=== PATIENT | female | born 1945 | race Caucasian/White ===

== ENCOUNTER → 2017-06-25 | Outpatient (CLI) | payer MEDICARE, OTHER | END | disposition home or self-care (01) | LOC: CFH 12:28 | PROVIDERS: ATTEND Family Medicine | DX: Z12.31 Encounter for screening mammogram for malignant neoplasm of breast (principal); Z80.3 Family history of malignant neoplasm of breast | CPT/HCPCS: 77067 ==

== ENCOUNTER → 2017-10-03 | Outpatient (CLI) | payer MEDICARE, OTHER | END | disposition home or self-care (01) | LOC: CFH 10:01 | PROVIDERS: ATTEND Family Medicine | DX: Z13.820 Encounter for screening for osteoporosis (principal); M85.89 Other specified disorders of bone density and structure, multiple sites | CPT/HCPCS: 77080 ==

== ENCOUNTER 2019-05-18 09:01 | Inpatient (IN) | payer MEDICARE, OTHER ==
[~2019-05-18] VITALS: Ht 160 cm; Wt 67.0 kg
--- NOTE | 2019-05-18 09:31 | NUR ---
Pt reported that she last ate at 0700 today.
--- NOTE | 2019-05-18 09:36 | NUR ---
PT TO ROOM FROM LOBBY VIA WHEELCHAIR AT THIS TIME.
[2019-05-18] MEDS ORDERED: ONDANSETRON 2MG/ML, 2ML ONE ×2 (09:43→15:57)
[2019-05-18] MEDS ORDERED: MORPHINE SULFATE 4 MG/ML, 1ML ONE ×2 (09:44→11:44)
[2019-05-18] MEDS: MORPHINE SULFATE 4 MG/ML, 1ML IVPush PRN ×2 (09:54→11:47)
[2019-05-18] MEDS ORDERED: ONDANSETRON 2MG/ML, 2ML IVPush ONE (10:00)
[2019-05-18] MEDS ORDERED: SODIUM CHLORIDE FLUSH 10ML SYR IVF ONE (10:00)
--- NOTE | 2019-05-18 10:06 | NUR ---
PIV ESTABLISHED. MEDICATIONS ADMINISTERED PER EMAR. PT LEFT TO IMAGING.
--- NOTE | 2019-05-18 10:06 | NUR ---
73 Y/O FEMALE PRESENTS TO ED WITH C/O GLF. PER PT "I WAS TAKING GARBAGE OUT THIS MORNING AND I THINK I SLIPPED ON SOME ICE. IT HURTS REALLY BAD AND FEELS FLOPPY." PT BEDSIDE. EDMD BEDSIDE.
--- NOTE | 2019-05-18 10:42 | NUR ---
PT BACK FROM IMAGING.
--- NOTE | 2019-05-18 10:57 | NUR ---
PT RESTING ON GURNEY. PT STATES "IF I DON'T MOVE I'M PRETTY COMFORTABLE." PT EDUCATED REGARDING NPO STATUS. PT AND VERBALIZE UNDERSTANDING. NADN. CALL LIGHT WITHIN REACH
[2019-05-18 11:01] LABS: BASOPHILS # (AUTO) 0.04 x10^3/uL (0-0.1); BASOPHILS % (AUTO) 1 % (0-1); EOSINOPHILS % (AUTO) 1 % (1-7); LYMPHOCYTES # (AUTO) 2.65 x10^3/uL (1-3.4); LYMPHOCYTES % (AUTO) 27 % (22-44); MD NO; MEAN CORPUSCULAR HEMOGLOBIN 30.5 pg (27.0-34.8); MEAN CORPUSCULAR HGB CONC 33.5 g/dL (32.4-35.8); MEAN CORPUSCULAR VOLUME 91.1 fL (80-100); MEAN PLATELET VOLUME 8.8 fL (7.4-10.4); MONOCYTES # (AUTO) 0.82 x10^3/uL (0.2-0.8); MONOCYTES % (AUTO) 8 % (2-9); NEUTROPHILS # (AUTO) 6.08 x10^3/uL (1.8-6.8); NEUTROPHILS % (AUTO) 63 % (42-75); PLATELET COUNT 332 x10^3/uL (130-400); RED BLOOD COUNT 4.61 x10^6/uL (3.82-5.3); RED CELL DISTRIBUTION WIDTH 13.5 % (9.6-15.2)
[2019-05-18 11:12] LABS: ANION GAP 9 mmol/L (5-15); CALCIUM 8.6 mg/dL (8.5-10.1); CHLORIDE 102 mmol/L (98-107); CREATININE 0.87 mg/dL (0.55-1.02)
[2019-05-18 11:13] LABS: ALBUMIN 3.5 g/dL (3.4-5.0)
[2019-05-18] MEDS ORDERED: EZET10TA70 PO (11:43)
--- NOTE | 2019-05-18 11:46 | NUR ---
REPORT TO AUNDREA GIBBS. ALL QUESTIONS ANSWERED.
--- NOTE | 2019-05-18 11:46 | NUR ---
PT CONTINUES TO REST ON GURNEY. NO ACUTE DISTRESS NOTED.
--- NOTE | 2019-05-18 12:05 | NUR ---
BEDSIDE REPORT TO AUNDREA GARAY. PER HOSPITALIST AND EDMD DO NOT TRANSPORT TO FLOOR UNTIL SURGEON CALLS BACK.
[2019-05-18 12:40] VITALS: BP 116/69
[2019-05-18] MEDS: SODIUM CHLORIDE 0.9% 1,000 ML IV SCH (13:06)
[2019-05-18] MEDS ORDERED: ONDANSETRON 2MG/ML, 2ML IVPush PRN (13:30)
[2019-05-18] MEDS ORDERED: ACETAMINOPHEN 325 MG TABLET PO PRN ×2 (13:30→17:30)
[2019-05-18] MEDS ORDERED: morphine SULFATE 10 MG/ML, 1ML IVPush PRN (13:30)
[2019-05-18] MEDS ORDERED: MIDAZOLAM 1 MG/ML, 2ML ONE (14:15)
[2019-05-18] MEDS ORDERED: FENTANYL PF 100 MCG/2ML ONE (14:15)
[2019-05-18] MEDS ORDERED: CEFAZOLIN 1,000 MG ONE (15:57)
[2019-05-18] MEDS ORDERED: EPHEDRINE 50 MG/ML, 1ML ONE (15:57)
[2019-05-18] MEDS ORDERED: PHENYLEPHRINE 10 MG/ML ONE (15:57)
[2019-05-18] MEDS ORDERED: DEXAMETHASONE 4 MG/ML, 1ML ONE (15:57)
[2019-05-18] MEDS ORDERED: PROPOFOL 10 MG/ML, 50ML ONE (15:57)
[2019-05-18] MEDS ORDERED: LIDOCAINE-MPF 2% ,5ML ONE (16:57)
[2019-05-18] MEDS ORDERED: BUPIVACAINE/PF 0.5% ONE (16:57)
[2019-05-18] MEDS ORDERED: MORPHINE SULFATE 4 MG/ML, 1ML IVPush PRN (17:30)
[2019-05-18] MEDS ORDERED: FENTANYL PF 100 MCG/2ML IV PRN (17:30)
[2019-05-18] MEDS ORDERED: PROMETHAZINE 25 MG/ML, 1ML IV PRN (17:30)
[2019-05-18] MEDS ORDERED: OXYcodone 5 MG/5 ML ORAL.SOL UDC PO PRN (17:30)
[2019-05-18 18:40] VITALS: BP 101/60
[2019-05-18 19:16] VITALS: BP 115/71
[2019-05-19] VITALS: BP 124/70
[2019-05-19] MEDS: CEFAZOLIN PMX 2GM/50ML 50 ML IVPB SCH ×2 (00:20→09:52)
[2019-05-19 04:00] VITALS: BP 118/66
[2019-05-19] MEDS: ENOXAPARIN 40 MG/0.4 ML SQ SCH (05:23)
[2019-05-19 05:38] LABS: BASOPHILS # (AUTO) 0.01 x10^3/uL (0-0.1); BASOPHILS % (AUTO) 0 % (0-1); EOSINOPHILS # (AUTO) 0.14 x10^3/uL (0-0.4); EOSINOPHILS % (AUTO) 1 % (1-7); LYMPHOCYTES # (AUTO) 1.32 x10^3/uL (1-3.4); LYMPHOCYTES % (AUTO) 10 % (22-44); MD NO; MEAN CORPUSCULAR HEMOGLOBIN 30.8 pg (27.0-34.8); MEAN CORPUSCULAR HGB CONC 33.8 g/dL (32.4-35.8); MEAN CORPUSCULAR VOLUME 91.1 fL (80-100); MEAN PLATELET VOLUME 8.2 fL (7.4-10.4); MONOCYTES # (AUTO) 1.36 x10^3/uL (0.2-0.8); MONOCYTES % (AUTO) 11 % (2-9); NEUTROPHILS # (AUTO) 9.82 x10^3/uL (1.8-6.8); NEUTROPHILS % (AUTO) 78 % (42-75); PLATELET COUNT 231 x10^3/uL (130-400); RED BLOOD COUNT 3.16 x10^6/uL (3.82-5.3); RED CELL DISTRIBUTION WIDTH 13.5 % (9.6-15.2)
[2019-05-19 05:40] LABS: CHLORIDE 105 mmol/L (98-107)
[2019-05-19 05:45] LABS: ANION GAP 7 mmol/L (5-15); CALCIUM 8.1 mg/dL (8.5-10.1); CREATININE 0.73 mg/dL (0.55-1.02)
[2019-05-19 06:47] VITALS: BP 106/61
[2019-05-19 12:50] VITALS: BP 108/59
[2019-05-19] MEDS: SODIUM CHLORIDE 0.9% 1,000 ML IV SCH ×3 (15:00→23:09)
[2019-05-19] MEDS: OXYcodone/APAP 5/325MG TABLET PO PRN ×2 (15:07→21:06)
[2019-05-19 18:36] VITALS: BP 94/58
[2019-05-20] MEDS: OXYcodone/APAP 5/325MG TABLET PO PRN (03:08)
[2019-05-20 03:19] VITALS: BP 110/79
[2019-05-20] MEDS: ENOXAPARIN 40 MG/0.4 ML SQ SCH (05:25)
[2019-05-20 05:58] LABS: MEAN CORPUSCULAR HEMOGLOBIN 30.8 pg (27.0-34.8); MEAN CORPUSCULAR HGB CONC 33.8 g/dL (32.4-35.8); MEAN CORPUSCULAR VOLUME 91.2 fL (80-100); MEAN PLATELET VOLUME 8.2 fL (7.4-10.4); PLATELET COUNT 186 x10^3/uL (130-400); RED BLOOD COUNT 2.69 x10^6/uL (3.82-5.3); RED CELL DISTRIBUTION WIDTH 13.7 % (9.6-15.2)
[2019-05-20 06:42] VITALS: BP 95/57
[2019-05-20 06:42] LABS: BASOPHILS # (AUTO) 0.05 x10^3/uL (0-0.1); BASOPHILS % (AUTO) 1 % (0-1); EOSINOPHILS % (AUTO) 0 % (1-7); LYMPHOCYTES # (AUTO) 1.68 x10^3/uL (1-3.4); LYMPHOCYTES % (AUTO) 17 % (22-44); MD SCAN; MONOCYTES # (AUTO) 1.49 x10^3/uL (0.2-0.8); MONOCYTES % (AUTO) 15 % (2-9); NEUTROPHILS # (AUTO) 6.82 x10^3/uL (1.8-6.8); NEUTROPHILS % (AUTO) 68 % (42-75)
[2019-05-20] MEDS ORDERED: ASPI-515 PO (11:00)
[2019-05-20] MEDS ORDERED: ACET325T26 PO (11:00)
[2019-05-20] MEDS: EZETIMIBE 10 MG TABLET PO SCH (11:02)
[2019-05-20 13:12] VITALS: BP 96/56
[2019-05-20 19:34] VITALS: BP 117/68
[2019-05-21 00:15] VITALS: BP 112/69
[2019-05-21] MEDS: ENOXAPARIN 40 MG/0.4 ML SQ SCH (05:04)
[2019-05-21 06:46] VITALS: BP 128/56
[2019-05-21] MEDS: EZETIMIBE 10 MG TABLET PO SCH (08:22)
[2019-05-21] MEDS ORDERED: HYDR-3237 PO (12:09)
== END 2019-05-21 13:18 | disposition home health service (06) | DRG 481 ==
LOC: ED 10:23 → EDIP 10:28 → 4NE 12:31 → DCLOUNGE 05-21 13:10
PROVIDERS: ADMIT Internal Medicine; ATTEND Internal Medicine
PROC: 3E0T3BZ Introduction of Anesthetic Agent into Peripheral Nerves and Plexi, Percutaneous Approach (ICD-10-PCS; 2019-05-18)
PROC: 0QS636Z Reposition Right Upper Femur with Intramedullary Internal Fixation Device, Percutaneous Approach (ICD-10-PCS; principal; 2019-05-18 14:30)
DX: S72.141A Displaced intertrochanteric fracture of right femur, initial encounter for closed fracture (principal); R71.0 Precipitous drop in hematocrit; E78.5 Hyperlipidemia, unspecified; W00.0XXA Fall on same level due to ice and snow, initial encounter; Y93.89 Activity, other specified; Y92.89 Other specified places as the place of occurrence of the external cause; Y99.8 Other external cause status
CPT/HCPCS: 36415; 71045; 76000; 80048; 82040; 85025; 93005; 96374; 96375; 96376; C1713; G0378; J0690; J1100; J1650; J2250; J2405; J2704; J3010; J2270; J2370; J7030